=== PATIENT | female | born 1995 | race Caucasian/White ===

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

== ENCOUNTER → 2017-02-02 | Outpatient (CLI) | payer OTHER ==
[2017-02-02 12:57] LABS: BASO % 0.3 %; BASO ABS # 0.02 K/uL (0-0.2); COMPLETE YES; HEMATOCRIT 44.4 % (37-47); IG% 0.3 %; LYMPH % 41.4 %; LYMPH ABS # 2.89 K/uL (1.2-3.4); MEAN CORPUSCULAR HEMOGLOBIN 30.7 pg (25-34); MEAN CORPUSCULAR HGB CONC 34.5 g/dl (32-36); MEAN PLATELET VOLUME 9.4 fL (7.4-10.4); MONO % 10.3 %; NEUT % 44.7 %; PLATELET COUNT 304 K/uL (130-400); RED BLOOD COUNT 4.99 M/uL (4.2-5.4); WHITE BLOOD COUNT 6.98 K/uL (4.8-10.8)
== END | disposition home or self-care (01) ==
LOC: C.LABBFT 10:35
PROVIDERS: ATTEND Physician Assistant Medical
DX: E28.2 Polycystic ovarian syndrome (principal)

== ENCOUNTER → 2017-02-09 | Outpatient (CLI) | payer OTHER ==
[~2017-02-09] MED LIST changes: +PRED20TA PO; +TOPI25TA55 PO
--- NOTE | 2017-02-09 09:15 | DIAGNOSTIC IMAGING REPORT ---
EXAMINATION: PELVIC ULTRASOUND (transabdominal and endovaginal scanning) CLINICAL HISTORY: E28.2 PCOS (polycystic ovarian syndrome)[id number] COMPARISON STUDY: CT scan dated 01/13/2011 FINDINGS: The uterus measured 6.0 x 2.5 x 3.8 cm. The endometrial stripe measured 1 cm. The right ovary measured 40 x 25 x 38 mm.. There are multiple peripheral follicles. This finding has been described in polycystic ovarian syndrome. The left ovary measured 52 x 35 x 43 mm.. There is a 4.2 cm left ovarian cyst containing internal echoes. This likely represents a hemorrhagic cyst/endometrioma. There is no ultrasonographic evidence of ovarian torsion. It should be noted that ovarian torsion can be present with normal Doppler ultrasonographic findings. There is trace free fluid present. The urine within the bladder slightly echogenic. IMPRESSION: 4.2 cm left ovarian cyst containing internal echoes. This likely represents a hemorrhagic cyst/endometrioma. Electronically signed by: Rasta Martinez M.D. 02/09/2017 9:14 AM Dictated Date/Time: 02/09/2017 9:10 AM
--- NOTE | 2017-02-10 08:31 | DIAGNOSTIC IMAGING REPORT ---
EXAMINATION: PELVIC ULTRASOUND (transabdominal and endovaginal scanning) CLINICAL HISTORY: E28.2 PCOS (polycystic ovarian syndrome)[id number] COMPARISON STUDY: CT scan dated 01/13/2011 FINDINGS: The uterus measured 6.0 x 2.5 x 3.8 cm. The endometrial stripe measured 1 cm. The right ovary measured 40 x 25 x 38 mm.. There are multiple peripheral follicles. This finding has been described in polycystic ovarian syndrome. The left ovary measured 52 x 35 x 43 mm.. There is a 4.2 cm left ovarian cyst containing internal echoes. This likely represents a hemorrhagic cyst/endometrioma. There is no ultrasonographic evidence of ovarian torsion. It should be noted that ovarian torsion can be present with normal Doppler ultrasonographic findings. There is trace free fluid present. The urine within the bladder slightly echogenic. IMPRESSION: 4.2 cm left ovarian cyst containing internal echoes. This likely represents a hemorrhagic cyst/endometrioma. Electronically signed by: Rasta Martinez M.D. 02/09/2017 9:14 AM Dictated Date/Time: 02/09/2017 9:10 AM
== END | disposition home or self-care (01) ==
LOC: C.ULTR 08:29
PROVIDERS: ATTEND Physician Assistant Medical
DX: E28.2 Polycystic ovarian syndrome (principal)

== ENCOUNTER → 2017-05-17 | Outpatient (CLI) | payer OTHER ==
[2017-05-19 15:42] LABS: CHLAMYDIA TRACH RNA*** NOT DETECTED (NOT DETECTED); GC (NEIS GONORRHOEAE)RNA** NOT DETECTED (NOT DETECTED)
== END | disposition home or self-care (01) ==
LOC: C.LAB1850 13:37
PROVIDERS: ATTEND Obstetrics & Gynecology
DX: Z11.3 Encounter for screening for infections with a predominantly sexual mode of transmission (principal); N91.1 Secondary amenorrhea

== ENCOUNTER 2017-08-15 14:20 | Emergency (ER) | payer OTHER ==
[~2017-08-15] VITALS: Ht 157.5 cm; Wt 66.3 kg
[~2017-08-15 14:20] MED LIST changes: -PRED20TA PO; -TOPI25TA55 PO
[2017-08-15 14:36] VITALS: TEMP 37; Ht 157.5 cm; Wt 66.3 kg
[2017-08-15] MEDS ORDERED: TOPI25TA55 PO (15:35)
[2017-08-15] MEDS ORDERED: PRED20TA PO (15:35)
[2017-08-15] MEDS ORDERED: ONDANSETRON 4MG OD TAB PO ONE (16:15)
--- NOTE | 2017-08-15 16:42 | DIAGNOSTIC IMAGING REPORT ---
R WRIST W/NAVICULAR MIN 3 VIEWS CLINICAL HISTORY: 22 years-old Female presenting with right wrist pain. TECHNIQUE: Frontal, bilateral oblique, lateral, and scaphoid views of the right wrist were obtained. COMPARISON: None. FINDINGS: Radiocarpal, intercarpal, and carpometacarpal articulations congruent. No acute fracture or malalignment. Specifically, no radiographic abnormality of the scaphoid to suggest fracture. No radiographic evidence of soft tissue swelling. Mild negative ulnar variance suggested. IMPRESSION: No acute osseous injury of the right wrist. If there is continuing clinical concern for scaphoid fracture, repeat radiographs in one week versus noncontrast MR could be obtained. Electronically signed by: Ray Wolf M.D. 08/15/2017 4:41 PM Dictated Date/Time: 08/15/2017 4:39 PM
[2017-08-15 16:59] VITALS: BP 120/56; PULSE 68; O2SAT 99
--- NOTE | 2017-08-15 17:06 | EMERGENCY ROOM VISIT NOTE ---
History First contact with patient: 15:12 Chief Complaint: WRIST PAIN Stated Complaint: HURT WRIST History of Present Illness The patient is a 22 year old female who presents to the Emergency Room with complaints of right wrist pain after falling down steps last night. The patient reports that she was coming down steps in her home and accidentally stepped on a cat on the steps, causing her to lose her balance and fall arms first down 5 steps. The patient reports right wrist and forearm pain. The patient denies any pain extending into the hand. The patient also denies any head injury, neck pain, back pain, chest pain, abdominal pain or shortness of breath. Denies paresthesias or numbness of the right hand or fingers. The patient is [id number], and rates her discomfort a 7 out of 10. Tetanus immunization is up-to-date. Review of Systems 10 system review was performed and was negative except for pertinent positives and negatives as indicated in history of present illness Past Medical/Surgical History Medical Problems: (1) Chondromalacia Patellae, Right Knee (2) Ovarian Cyst Nec/Nos Surgical Problems: (1) History of arthroscopy of both knees (2) History of wisdom tooth extraction (3) Status post wrist surgery Social History Smoking Status: Current Every Day Smoker Alcohol Use: none Marital Status: single Housing Status: lives with family Occupation Status: unemployed, student Current/Historical Medications Scheduled Prednisone (Prednisone), 20 MG PO UD Topiramate (Topamax), 50 MG PO HS Physical Exam Vital Signs Date Time Temp Pulse Resp B/P (MAP) Pulse Ox O2 Delivery O2 Flow Rate FiO2 08/15/17 16:59 68 20 120/56 99 08/15/17 14:36 37.0 77 20 114/55 99 Room Air Physical Exam CONSTITUTIONAL: Healthy and well nourished. Alert and oriented X 3 with positive affect. Patient appears in mild discomfort after returning from x-ray , and is holding an emesis bag. HEENT: Normocephalic, atraumatic. Pupils equal, round and reactive. NECK: Full active range of motion without discomfort. RESPIRATORY: Clear to auscultation bilaterally with no wheezing, crackles, rhonchi or stridor. CARDIOVASCULAR: Regular rate and rhythm with no murmurs, rubs or gallops. GASTROINTESTINAL: Bowel sounds present in all quadrants. MUSCULOSKELETAL: Examination shows significant anatomic snuffbox tenderness. No obvious edema or ecchymosis of the wrist. She is tender across the entire dorsal wrist region as well. Pronation and supination also extends into the proximal forearm with mild tenderness to palpation over the medial elbow region. Capillary refill of the fingers is less than 2 seconds. INTEGUMENTARY: No rash or other significant dermatologic conditions noted. NEUROLOGIC: No focal neurologic deficits noted. Right hand and fingers are sensory intact. Medical Decision & Procedures ER Provider Diagnostic Interpretation: My interpretation of right wrist x-rays does not show any obvious fractures, carpal dislocation or other acute findings. Radiologist report is as follows: R WRIST W/NAVICULAR MIN 3 VIEWS CLINICAL HISTORY: 22 years-old Female presenting with right wrist pain. TECHNIQUE: Frontal, bilateral oblique, lateral, and scaphoid views of the right wrist were obtained. COMPARISON: None. FINDINGS: Radiocarpal, intercarpal, and carpometacarpal articulations congruent. No acute fracture or malalignment. Specifically, no radiographic abnormality of the scaphoid to suggest fracture. No radiographic evidence of soft tissue swelling. Mild negative ulnar variance suggested. IMPRESSION: No acute osseous injury of the right wrist. If there is continuing clinical concern for scaphoid fracture, repeat radiographs in one week versus noncontrast MR could be obtained. My interpretation of right forearm x-rays also does not show any acute fractures or dislocation. Radiologist report is as follows: Medications Administered Medications (Trade) Dose Ordered Sig/Ritchie Route Start Time Stop Time Status Last Admin Dose Admin Ondansetron HCl (Zofran Odt) 4 mg ONE ONCE PO 08/15/17 16:15 08/15/17 16:16 DC 08/15/17 16:21 4 MG ED Course Patient history and physical exam were performed. Nurse's notes were reviewed. Vital signs were reviewed and were normal. The patient had gone to x-ray prior to my exam per nursing x-ray protocol orders. Review of right wrist and forearm x-rays does not show any acute injuries/fractures/dislocations, however with anatomic snuffbox tenderness, I was concerned for navicular injury. When I was able to perform physical exam, she also had discomfort in the proximal forearm with pronation and supination, therefore a form x-ray was ordered and was also normal. An Ortho-Glass thumb spica splint was applied. Neurovascular check after splint placement was normal. The patient was encouraged to intermittently apply ice to the wrist. Ibuprofen and Tylenol in alternating fashion if needed for additional pain relief. The patient was instructed to follow-up with [facility] for further reevaluation and management. She has seen them before in the past for right wrist injuries/surgery. The patient was happy with plan of care, voice understanding of all discharge instructions, and rated her discomfort a 4 out of 10 at the conclusion of my exam. She refused any analgesics while in the emergency department. Medical Decision Blood Pressure Screening Patient's blood pressure: Normal blood pressure Impression Primary Impression: Right wrist injury Additional Impressions: Fall down steps Status post wrist surgery Departure Information Referrals No Doctor, Assigned (PCP) Patient Instructions My [facility] Problem Qualifiers Primary Impression: Right wrist injury Encounter type: initial encounter Qualified Codes: S69.91XA - Unspecified injury of right wrist, hand and finger(s), initial encounter Additional Impressions: Fall down steps Encounter type: initial encounter Qualified Codes: W10.8XXA - Fall (on) ( from) other stairs and steps, initial encounter
--- NOTE | 2017-08-15 17:35 | DIAGNOSTIC IMAGING REPORT ---
R FOREARM 2 VIEWS ROUTINE CLINICAL HISTORY: 22 years-old Female presenting with R forearm pain. TECHNIQUE: Frontal and lateral views of the right forearm are obtained. COMPARISON: None. FINDINGS: Elbow joint and radiocarpal articulations congruent. No acute fracture or malalignment. Apparent negative ulnar variance may be positional. IMPRESSION: No acute osseous injury of the right forearm. Electronically signed by: Ray Wolf M.D. 08/15/2017 5:34 PM Dictated Date/Time: 08/15/2017 5:33 PM
== END 2017-08-15 17:00 | disposition home or self-care (01) ==
LOC: C.EDB 14:22 → C.EDD 17:00
DX: S69.91XA Unspecified injury of right wrist, hand and finger(s), initial encounter (principal); W10.8XXA Fall (on) (from) other stairs and steps, initial encounter; N83.209 Unspecified ovarian cyst, unspecified side; F17.200 Nicotine dependence, unspecified, uncomplicated; Z79.899 Other long term (current) drug therapy

== ENCOUNTER → 2018-03-02 | Outpatient (CLI) | payer OTHER ==
[~2018-03-02] MED LIST changes: -NORT10CA2 PO; -OXYC-57 PO; +PRED20TA PO; +TOPI25TA55 PO; -TOPI50TA25 PO
[2018-03-02 17:13] LABS: HEMATOCRIT 45.8 % (37-47); HEMOGLOBIN 15.7 g/dL (12.0-16.0); MEAN CELL VOLUME 91.1 fL (80-100); MEAN CORPUSCULAR HEMOGLOBIN 31.2 pg (25-34); MEAN CORPUSCULAR HGB CONC 34.3 g/dl (32-36); MEAN PLATELET VOLUME 9.8 fL (7.4-10.4); PLATELET COUNT 324 K/uL (130-400); RED CELL DISTRIBUTION WIDTH CV 13.5 % (11.5-14.5); RED CELL DISTRIBUTION WIDTH SD 44.9 fL (36.4-46.3); WHITE BLOOD COUNT 11.28 K/uL (4.8-10.8)
[2018-03-02 18:47] LABS: URIC ACID 5.3 mg/dl (2.6-7.2)
[2018-03-06 02:19] LABS: ANA SCREEN TC 249X NEGATIVE (NEGATIVE)
== END | disposition home or self-care (01) ==
LOC: C.LABBFT 12:59
PROVIDERS: ATTEND Orthopaedic Surgery
DX: M25.531 Pain in right wrist (principal)

== ENCOUNTER 2018-03-17 17:10 | Emergency (ER) | payer OTHER ==
[~2018-03-17] VITALS: Ht 157.5 cm; Wt 70.4 kg
[2018-03-17 17:14] VITALS: Ht 157.5 cm; Wt 70.4 kg
[2018-03-17] MEDS ORDERED: SODIUM CHLORIDE 0.9% 1000ML 2,000 ML IV STA (17:30)
[2018-03-17] MEDS ORDERED: KETOROLAC TROMETHAMINE 30 MG/ML VIAL IV STA (17:30)
--- NOTE | 2018-03-17 17:47 | EMERGENCY ROOM VISIT NOTE ---
History Report prepared by Johnny: Drake Flores Under the Supervision of: Dr. Yariel Santiago M.D. First contact with patient: 17:23 Chief Complaint: ABDOMINAL PAIN Stated Complaint: LOWER STOMACH PAIN History of Present Illness The patient is a 22 year old female who presents to the Emergency Room with complaints of worsening lower abdominal pain that began last night. Patient is present with her mother. Patient states that the pain is located across her entire lower abdomen. Patient states that the symptoms came on all of a sudden. Patient adds that walking and sitting worsens the symptoms. Patient states that she was referred to the ED by her OB-SEISMOGRAPH SHOOTER due to the possibility of an ovarian cyst. Patient states that she has a history of ovarian cyst. Patient adds that she has nausea, chills, and hot flashes. She states that she does not have nausea in the ER currently. Patient states that she took 3 Advil yesterday and 1 today but it did not resolve the symptoms. Patient adds that her next menstrual period is in the next week. She states that she usually gets abdominal pain before her menstrual periods but "not this bad". Patient adds that it hurts to pee. She denies any burning with urination. Patient states that she had a miscarriage in April. She states that she was 6 weeks at the time. Patient states that she has a history of UTIs. She states that her symptoms do not feel like her previous UTIs. Patient states that she is sexually active but is not worried about an STD. Patient adds that she has a history of migraines. Patient denies vaginal discharge, vomiting, and diarrhea. Source of History: patient Onset: Last night Position: abdomen (Lower) Timing: worsening Modifying Factors (Worsening): other (Walking and sitting) Associated Symptoms: + chills, + nausea, + urinary symptoms (No burning but pain with urination), No vomiting, No diarrhea Note: Patient has hot flashes. Review of Systems See HPI for pertinent positives and negatives. A total of ten systems were reviewed and were otherwise negative. Past Medical & Surgical Medical Problems: (1) Chondromalacia Patellae, Right Knee (2) Ovarian Cyst Nec/Nos Surgical Problems: (1) History of arthroscopy of both knees (2) History of wisdom tooth extraction (3) Status post wrist surgery Family History Cancer Diabetes mellitus Gallbladder disease Heart disease Hypertension Kidney disease Seizures Social History Smoking Status: Current Every Day Smoker Alcohol Use: none Marital Status: single Housing Status: lives with family Occupation Status: unemployed, student Current/Historical Medications Scheduled Topiramate (Qudexy Xr), 100 MG PO DAILY Scheduled PRN Ondansetron Hcl (Zofran), 4-8 MG PO BID PRN for Nausea Propranolol (Inderal), 20 MG PO BID PRN for tremor Sumatriptan Succinate (Imitrex Statdose), 6 MG IM Q2H PRN for Migraine Miscellaneous Medications Rizatriptan Benzoate (Maxalt), 10 MG PO Allergies Coded Allergies: Amoxicillin (Unverified Allergy, Unknown, GI ISSUES, 03/17/18) Physical Exam Vital Signs Date Time Temp Pulse Resp B/P (MAP) Pulse Ox O2 Delivery O2 Flow Rate FiO2 03/17/18 20:48 36.9 80 18 110/70 99 Room Air 03/17/18 19:01 85 18 109/69 99 Room Air 03/17/18 17:14 37.0 96 18 113/68 98 Room Air Physical Exam GENERAL: Awake, alert, fatigued-appearing, in no distress HENT: Normocephalic, atraumatic. Oropharynx unremarkable other than dry mucous membranes. EYES: Normal conjunctiva. Sclera non-icteric. NECK: Supple. No nuchal rigidity. FROM. No JVD. RESPIRATORY: Clear to auscultation. CARDIAC: Regular rate, normal rhythm. Extremities warm and well perfused. Pulses equal. ABDOMEN: Soft, non-distended. Mild lower abdominal tenderness to palpation increased in the left lower quadrant.. No peritoneal signs. No rebound or guarding. No masses. RECTAL: Deferred. MUSCULOSKELETAL: Chest examination reveals no tenderness. The back is symmetrical on inspection without obvious abnormality. There is no CVA tenderness to palpation. No joint edema. LOWER EXTREMITIES: Calves are equal size bilaterally and non-tender. No edema. No discoloration. NEURO: Normal sensorium. No sensory or motor deficits noted. SKIN: No rash or jaundice noted. Medical Decision & Procedures ER Provider Diagnostic Interpretation: Radiology results as stated below per my review and radiologist interpretation: PELVIC COMPLETE NON OB HISTORY: 22 years-old Female Lower abd pain, h/o ovarian cysts acute lower abdominal pain with history of ovarian cysts. COMPARISON: Pelvic ultrasound 02/09/2017 TECHNIQUE: Multiple real-time sonographic images of the deep pelvic structures were obtained transabdominally and transvaginally assessing grayscale appearance, color and spectral flow FINDINGS: TRANSABDOMINAL: Anteflexed uterus measures 7.4 x 3.0 x 3.8 cm. Endometrium measures 1.0 cm in thickness. Ovaries are not well seen transabdominally. Arterial inflow to the right ovary is documented. Cystic structure of the right ovary measures up to 2.1 cm. Arterial inflow is also seen within the left ovary. Complex lesion of the left ovary is redemonstrated. TRANSVAGINAL: Anteflexed uterus measures 7.0 x 2.7 x 4.1 cm. Endometrium measures 0.7 cm and appears homogeneous. No myometrial mass lesions identified. Right ovary measures 4.3 x 2.7 x 4.3 cm and demonstrates several follicles. Complex partially cystic lesion of the right ovary measures 2.7 x 1.6 x 2.3 cm suggesting involuting follicle. Arterial inflow and venous outflow is seen within the right ovary. Left ovary measures 4.5 x 2.6 x 3.8 cm. There is a complex heterogeneous structure of the left ovary measuring 3.5 x 2.1 x 2.8 cm with peripheral vascularity. On prior study dated 02/09/2017, complex left ovarian structure measuring up to 4.2 cm. Arterial inflow and venous outflow is seen within the left ovary. No significant free pelvic fluid. IMPRESSION: 1. No evidence of ovarian torsion. 2. Heterogeneous lesion of the left ovary measuring up to 3.5 cm suggests hemorrhagic ovarian cyst. 3. Involuting right ovarian follicle. 4. Unremarkable sonographic appearance of the uterus and endometrium. The above report was generated using voice recognition software. It may contain grammatical, syntax or spelling errors. Electronically signed by: Marc Ugalde M.D. 03/17/2018 8:12 PM Laboratory Results 03/17/18 17:43 Red Blood Count 4.82, Mean Corpuscular Volume 89.8, Mean Corpuscular Hemoglobin 31.3, Mean Corpuscular Hemoglobin Concent 34.9, Mean Platelet Volume 9.4, Neutrophils (%) (Auto) 75.0, Lymphocytes (%) (Auto) 14.2, Monocytes (%) (Auto) 9.1, Eosinophils (%) (Auto) 1.4, Basophils (%) (Auto) 0.1, Neutrophils # (Auto) 12.10, Lymphocytes # (Auto) 2.29, Monocytes # (Auto) 1.47, Eosinophils # (Auto) 0.22, Basophils # (Auto) 0.02 03/17/18 17:43 Test 03/17/18 17:43 03/17/18 18:24 White Blood Count 16.13 K/uL (4.8-10.8) Red Blood Count 4.82 M/uL (4.2-5.4) Hemoglobin 15.1 g/dL (12.0-16.0) Hematocrit 43.3 % (37-47) Mean Corpuscular Volume 89.8 fL (80-100) Mean Corpuscular Hemoglobin 31.3 pg (25-34) Mean Corpuscular Hemoglobin Concent 34.9 g/dl (32-36) Platelet Count 232 K/uL (130-400) Mean Platelet Volume 9.4 fL (7.4-10.4) Neutrophils (%) (Auto) 75.0 % Lymphocytes (%) (Auto) 14.2 % Monocytes (%) (Auto) 9.1 % Eosinophils (%) (Auto) 1.4 % Basophils (%) (Auto) 0.1 % Neutrophils # (Auto) 12.10 K/uL (1.4-6.5) Lymphocytes # (Auto) 2.29 K/uL (1.2-3.4) Monocytes # (Auto) 1.47 K/uL (0.11-0.59) Eosinophils # (Auto) 0.22 K/uL (0-0.5) Basophils # (Auto) 0.02 K/uL (0-0.2) RDW Standard Deviation 44.1 fL (36.4-46.3) RDW Coefficient of Variation 13.5 % (11.5-14.5) Immature Granulocyte % (Auto) 0.2 % Immature Granulocyte # (Auto) 0.03 K/uL (0.00-0.02) Anion Gap 8.0 mmol/L (3-11) Est Creatinine Clear Calc Drug Dose 142.2 ml/min Estimated GFR () > 150.0 Estimated GFR (Non- 132.7 BUN/Creatinine Ratio 17.9 (10-20) Calcium Level 9.0 mg/dl (8.5-10.1) Total Bilirubin 1.0 mg/dl (0.2-1) Direct Bilirubin 0.2 mg/dl (0-0.2) Aspartate Amino Transf (AST/SGOT) 12 U/L (15-37) Alanine Aminotransferase (ALT/SGPT) 15 U/L (12-78) Alkaline Phosphatase 71 U/L (45-117) Total Protein 7.6 gm/dl (6.4-8.2) Albumin 3.9 gm/dl (3.4-5.0) Lipase 94 U/L (73-393) Human Chorionic Gonadotropin, Qual NEG (NEG) Urine Color YELLOW Urine Appearance CLEAR (CLEAR) Urine pH 6.0 (4.5-7.5) Urine Specific [place] 1.015 (1.000-1.030) Urine Protein NEG (NEG) Urine Glucose (UA) NEG (NEG) Urine Ketones 1+ (NEG) Urine Occult Blood TRACE (NEG) Urine Nitrite NEG (NEG) Urine Bilirubin NEG (NEG) Urine Urobilinogen NEG (NEG) Urine Leukocyte Esterase NEG (NEG) Urine WBC (Auto) 1-5 /hpf (0-5) Urine RBC (Auto) 0-4 /hpf (0-4) Urine Hyaline Casts (Auto) 1-5 /lpf (0-5) Urine Epithelial Cells (Auto) >30 /lpf (0-5) Urine Bacteria (Auto) NEG (NEG) Laboratory results reviewed by me Medications Administered Medications (Trade) Dose Ordered Sig/Ritchie Route Start Time Stop Time Status Last Admin Dose Admin Sodium Chloride 2,000 ml @ 999 mls/hr Q2H1M STAT IV 03/17/18 17:30 03/17/18 19:30 DC 03/17/18 18:20 999 MLS/HR Ketorolac Tromethamine (Toradol Inj) 15 mg NOW STAT IV 03/17/18 17:30 03/17/18 17:36 DC 03/17/18 18:21 15 MG Oxycodone HCl (Roxicodone Immediate Rel Tab) 5 mg NOW STAT PO 03/17/18 20:29 03/17/18 20:31 DC 03/17/18 20:48 5 MG Acetaminophen (Tylenol Tab) 1,000 mg NOW STAT PO 03/17/18 20:29 03/17/18 20:31 DC 03/17/18 20:47 1,000 MG ED Course 1725: The patient was evaluated in room B4B. A complete history and physical exam was performed. Medical Decision I reviewed the patient's past medical history, medications, and the nursing notes as described above. Differential diagnosis: Etiologies such as appendicitis, diverticulitis, PUD, biliary pathology, UTI, pancreatitis, obstruction, mesenteric ischemia, aortic pathology, infections, inflammatory bowel disease, renal colic, as well as others were entertained. The patient is a 22-year-old woman with a past medical history of ovarian cyst who presents to emergency department with lower abdominal pain that began last night per HPI. On arrival, the patient is uncomfortable but no acute distress, afebrile stable vital signs. On exam the patient has mild lower abdominal tenderness mostly in the left lower quadrant. WBC 16, nonspecific. Labs otherwise unremarkable. Pelvic ultrasound demonstrates ". Heterogeneous lesion of the left ovary measuring up to 3.5 cm suggests hemorrhagic ovarian cyst." The patient was reevaluated and feeling improved. Given the patient's ultrasound demonstrates findings that are consistent with the patient's symptoms and the patient denies any vaginal symptoms including discharge, odor, pain, we agreed to defer pelvic exam at this time. She will follow-up with her catering driver. Findings and plan for follow-up reviewed with patient. Patient agreeable and d/c'd per discharge instructions. Medication Reconcilliation Current Medication List: was personally reviewed by me Blood Pressure Screening Patient's blood pressure: Normal blood pressure Blood pressure disposition: Did not require urgent referral Impression Primary Impression: Hemorrhagic cyst of left ovary Scribe Attestation The scribe's documentation has been prepared under my direction and personally reviewed by me in its entirety. I confirm that the note above accurately reflects all work, treatment, procedures, and medical decision making performed by me. Departure Information Dispostion Home / Self-Care Referrals Devin Gilmore M.D. (PCP) Patient Instructions Cyst Ruptured Ovarian Tx, ED Cyst Ovarian, My [facility] Additional Instructions Please follow up with your primary care physician and catering driver in the next week for re-evaluation. You were found to have a rupture ovarian cyst. Otherwise, your exam, lab results, and ultrasound did not show signs of an emergent condition at this time. Acetaminophen or ibuprofen for pain and fevers as needed. Drink plenty of fluids to ensure hydration. Return to the emergency department for worsening symptoms as described in the accompanying instructions.
[2018-03-17] MEDS ORDERED: ONDA4TAB46 PO (17:54)
[2018-03-17] MEDS ORDERED: TOPI1CAP12 PO (17:54)
[2018-03-17] MEDS ORDERED: RIZA10TA18 PO (17:54)
[2018-03-17] MEDS ORDERED: SUMA6KIT IM (17:54)
[2018-03-17] MEDS ORDERED: PROP20TA67 PO (17:54)
[2018-03-17 17:56] LABS: BASO % 0.1 %; BASO ABS # 0.02 K/uL (0-0.2); EOS % 1.4 %; EOS ABS # 0.22 K/uL (0-0.5); HEMATOCRIT 43.3 % (37-47); HEMOGLOBIN 15.1 g/dL (12.0-16.0); IG# 0.03 K/uL (0.00-0.02); LYMPH % 14.2 %; LYMPH ABS # 2.29 K/uL (1.2-3.4); MEAN CELL VOLUME 89.8 fL (80-100); MEAN CORPUSCULAR HEMOGLOBIN 31.3 pg (25-34); MEAN CORPUSCULAR HGB CONC 34.9 g/dl (32-36); MEAN PLATELET VOLUME 9.4 fL (7.4-10.4); MONO % 9.1 %; MONO ABS # 1.47 K/uL (0.11-0.59); PLATELET COUNT 232 K/uL (130-400); RED CELL DISTRIBUTION WIDTH CV 13.5 % (11.5-14.5); RED CELL DISTRIBUTION WIDTH SD 44.1 fL (36.4-46.3); WHITE BLOOD COUNT 16.13 K/uL (4.8-10.8)
[2018-03-17 18:12] LABS: ALBUMIN 3.9 gm/dl (3.4-5.0); ALT/SGPT 15 U/L (12-78); AST/SGOT 12 U/L (15-37); BLOOD UREA NITROGEN 10 mg/dl (7-18); CARBON DIOXIDE 24 mmol/L (21-32); CREATININE 0.58 mg/dl (0.60-1.20); GLUCOSE 75 mg/dl (70-99); POTASSIUM 3.6 mmol/L (3.5-5.1); SODIUM 137 mmol/L (136-145)
[2018-03-17 18:15] LABS: ALKALINE PHOSPHATASE 71 U/L (45-117); LIPASE 94 U/L (73-393); TOTAL PROTEIN 7.6 gm/dl (6.4-8.2)
--- NOTE | 2018-03-17 20:14 | DIAGNOSTIC IMAGING REPORT ---
PELVIC COMPLETE NON OB HISTORY: 22 years-old Female Lower abd pain, h/o ovarian cysts acute lower abdominal pain with history of ovarian cysts. COMPARISON: Pelvic ultrasound 02/09/2017 TECHNIQUE: Multiple real-time sonographic images of the deep pelvic structures were obtained transabdominally and transvaginally assessing grayscale appearance, color and spectral flow FINDINGS: TRANSABDOMINAL: Anteflexed uterus measures 7.4 x 3.0 x 3.8 cm. Endometrium measures 1.0 cm in thickness. Ovaries are not well seen transabdominally. Arterial inflow to the right ovary is documented. Cystic structure of the right ovary measures up to 2.1 cm. Arterial inflow is also seen within the left ovary. Complex lesion of the left ovary is redemonstrated. TRANSVAGINAL: Anteflexed uterus measures 7.0 x 2.7 x 4.1 cm. Endometrium measures 0.7 cm and appears homogeneous. No myometrial mass lesions identified. Right ovary measures 4.3 x 2.7 x 4.3 cm and demonstrates several follicles. Complex partially cystic lesion of the right ovary measures 2.7 x 1.6 x 2.3 cm suggesting involuting follicle. Arterial inflow and venous outflow is seen within the right ovary. Left ovary measures 4.5 x 2.6 x 3.8 cm. There is a complex heterogeneous structure of the left ovary measuring 3.5 x 2.1 x 2.8 cm with peripheral vascularity. On prior study dated 02/09/2017, complex left ovarian structure measuring up to 4.2 cm. Arterial inflow and venous outflow is seen within the left ovary. No significant free pelvic fluid. IMPRESSION: 1. No evidence of ovarian torsion. 2. Heterogeneous lesion of the left ovary measuring up to 3.5 cm suggests hemorrhagic ovarian cyst. 3. Involuting right ovarian follicle. 4. Unremarkable sonographic appearance of the uterus and endometrium. The above report was generated using voice recognition software. It may contain grammatical, syntax or spelling errors. Electronically signed by: Marc Ugalde M.D. 03/17/2018 8:12 PM Dictated Date/Time: 03/17/2018 8:08 PM
[2018-03-17] MEDS ORDERED: OXYCODONE HCL IR 5 MG TAB (IMMEDIATE RELEASE) PO STA (20:29)
[2018-03-17] MEDS ORDERED: ACETAMINOPHEN 500 MG TAB PO STA (20:29)
[2018-03-17 20:48] VITALS: BP 110/70; PULSE 80; TEMP 36.9; O2SAT 99
== END 2018-03-17 20:50 | disposition home or self-care (01) ==
LOC: C.EDB 17:10
DX: N83.202 Unspecified ovarian cyst, left side (principal); F17.200 Nicotine dependence, unspecified, uncomplicated; Z87.440 Personal history of urinary (tract) infections; Z88.0 Allergy status to penicillin

== ENCOUNTER 2018-06-05 15:35 | Emergency (ER) | payer OTHER ==
[~2018-06-05 15:35] MED LIST changes: +ONDA4TAB46 PO; -PRED20TA PO; +PROP20TA67 PO; +RIZA10TA18 PO; +SUMA6KIT IM; +TOPI1CAP12 PO; -TOPI25TA55 PO
[2018-06-05 15:39] VITALS: TEMP 36.7; Ht 157.5 cm
--- NOTE | 2018-06-05 16:15 | DIAGNOSTIC IMAGING REPORT ---
L KNEE 1 OR 2 VIEWS ROUTINE CLINICAL HISTORY: LT KNEE PAIN PATELLAR DISLOCATION pain COMPARISON: None. DISCUSSION: Slight lateral patellar subluxation. Small joint effusion. Tiny avulsion from the superior patella. The osseous structures are unremarkable. There is no evidence for soft tissue swelling. IMPRESSION: 1. Tiny avulsion superior patella. 2. Slight lateral patellar subluxation 3. Otherwise negative study. The above report was generated using voice recognition software. It may contain grammatical, syntax or spelling errors. Electronically signed by: Sumit Maria M.D. 06/05/2018 4:13 PM Dictated Date/Time: 06/05/2018 4:13 PM
[2018-06-05] MEDS ORDERED: ONDANSETRON 4MG OD TAB PO STA (16:57)
--- NOTE | 2018-06-05 16:57 | EMERGENCY ROOM VISIT NOTE ---
History First contact with patient: 15:41 (Deloris Sanchez PA-C) First contact with patient: 15:41 (Tima Artis M.D.) Chief Complaint: KNEEPAIN Stated Complaint: LEFT KNEE INJURY, FALL History of Present Illness The patient is a 23 year old female who presents to the Emergency Room with complaints of left knee pain. [facility] walking out of the bathroom when her left knee "popped out." She states that the kneecap was initially on the side of her knee but then popped back in. She has had issues with this in the past and has had surgery in 2015. She reports swelling in the knee and 10/10 pain. She has not been able to walk on the knee. She denies any numbness or weakness. She took Aleve prior to arrival for pain. (Deloris Sanchez PA-C) Review of Systems A complete 6 point review of systems was reviewed with the patient with pertinent positives and negatives as per history of present illness. All else were negative. (Deloris Sanchez PA-C) Past Medical/Surgical History Medical Problems: (1) Chondromalacia Patellae, Right Knee (2) Ovarian Cyst Nec/Nos Surgical Problems: (1) History of arthroscopy of both knees (2) History of wisdom tooth extraction (3) Status post wrist surgery (Tima Artis M.D.) Family History Cancer Diabetes mellitus Gallbladder disease Heart disease Hypertension Kidney disease Seizures (Deloris Sanchez PA-C) Cancer Diabetes mellitus Gallbladder disease Heart disease Hypertension Kidney disease Seizures (Tima Artis M.D.) Social History Smoking Status: Never Smoker Alcohol Use: none Marital Status: single Housing Status: lives with family Occupation Status: unemployed, student (Deloris Sanchez PA-C) Current/Historical Medications Scheduled Topiramate (Qudexy Xr), 100 MG PO DAILY Scheduled PRN Ondansetron Hcl (Zofran), 4-8 MG PO BID PRN for Nausea Oxycodone/Acetaminophen 5MG/325MG (Percocet 5MG/325MG), 1 TAB PO Q4H PRN for Pain Propranolol (Inderal), 20 MG PO BID PRN for tremor Rizatriptan Benzoate (Maxalt), 10 MG PO DIRECTED PRN for Migraine Sumatriptan Succinate (Imitrex Statdose), 6 MG IM Q2H PRN for Migraine Physical Exam Vital Signs Date Time Temp Pulse Resp B/P (MAP) Pulse Ox O2 Delivery O2 Flow Rate FiO2 06/05/18 17:42 72 18 130/81 99 06/05/18 15:39 36.7 66 17 122/75 100 Room Air (Tima Artis M.D.) Physical Exam VITALS: Vitals are noted on the nurse's note and reviewed by myself. Vital signs stable. GENERAL: This is a 23-year-old female, in no acute distress, nondiaphoretic, well-developed well-nourished. MUSCULOSKELETAL: There is a small left knee joint effusion. Patient is significantly tender over the anterior aspect of the knee range of motion testing is not able to be performed due to patient discomfort. NEURO: Patient was alert and oriented to person place and time. Distal sensation intact. (Deloris Sanchez ., PA-C) Medical Decision & Procedures ER Provider Diagnostic Interpretation: L KNEE 1 OR 2 VIEWS ROUTINE CLINICAL HISTORY: LT KNEE PAIN PATELLAR DISLOCATION pain COMPARISON: None. DISCUSSION: Slight lateral patellar subluxation. Small joint effusion. Tiny avulsion from the superior patella. The osseous structures are unremarkable. There is no evidence for soft tissue swelling. IMPRESSION: 1. Tiny avulsion superior patella. 2. Slight lateral patellar subluxation 3. Otherwise negative study. (Deloris Sanchez ., PA-C) Medications Administered Medications (Trade) Dose Ordered Sig/Ritchie Route Start Time Stop Time Status Last Admin Dose Admin Oxycodone/ Acetaminophen (Percocet 5/ 325MG Home Pack) 1 homepack UD ONCE PO 06/05/18 17:00 06/05/18 17:01 DC 06/05/18 17:00 1 HOMEPACK Ondansetron HCl (Zofran Odt) 4 mg NOW STAT PO 06/05/18 16:57 06/05/18 16:59 DC 06/05/18 16:57 4 MG (Tima Artis M.D.) Medical Decision The patient was evaluated as above. X-ray of the left knee was obtained and reviewed by radiology as above. Patient does have lateral subluxation of the patella. She has a history of patellar dislocations. She was placed in a knee immobilizer and crutches. She was instructed to follow-up with her surgeon. She was given a home pack and prescription for Percocet for pain. She verbalized understanding of my assessment and treatment plan and was discharged home in good condition. (Deloris Sanchez PA-C) [place] Drug Monitoring Program Search Results: patient reviewed within database, no issues identified (Deloris Sanchez PA-C) Medication Reconcilliation Current Medication List: was personally reviewed by me (Deloris Sanchez PA-C) Blood Pressure Screening Patient's blood pressure: Normal blood pressure (Deloris Sanchez PA-C) Impression Primary Impression: Left knee pain Departure Information Dispostion Home / Self-Care Condition GOOD Prescriptions Oxycodone/Acetaminophen 5MG/325MG (PERCOCET 5MG/325MG) Tab 1 TAB PO Q4H Y for Pain, #15 TAB For Initial Treatment Prov: Deloris Sanchez PA-C 06/05/18 Referrals Sravanthi Glasgow D.O. (PCP) Conrado Castillo D.O. Patient Instructions My [facility] Additional Instructions You have been treated in the Emergency Department for Knee Pain. You have been prescribed Percocet to be used for pain control. This is a narcotic medication. You cannot drive or consume alcohol while on this medicine. This medicine should only be used for pain that cannot be controlled with [id number] pain medicines. For pain control, you can use the following [id number] medicines (if >12 yo): - Regular strength (325mg/tab) Tylenol (acetaminophen) 2 tabs every 4-6 hours as needed. Do not exceed 12 tablets in a 24 hour period. Avoid taking more than 4 grams (4000 mg) of Tylenol per day. This includes any other sources of acetaminophen you may take on a regular basis. - Regular strength (200 mg/tab) Advil (ibuprofen) 1-2 tabs every 4-6 hours as needed. Do not exceed a dose of 3200 mg per day. If this is a recent injury (<24 hrs), ice can be applied to the area of pain for the first 3 days to help decrease pain and inflammation. Ice massages can be performed by freezing water in a paper cup, peeling back the cup to expose the ice and then massaging over the affected area. Contact Dr. Castillo's office to schedule follow up appointment. Keep the knee brace in place until cleared by Orthopedics. Use the crutches you have been provided to keep ALL weight off of the knee until weight bearing is tolerable. Return to the Emergency Department if your current symptoms worsen despite treatment course outlined above. Problem Qualifiers Primary Impression: Left knee pain Chronicity: acute Qualified Codes: M25.562 - Pain in left knee
[2018-06-05] MEDS ORDERED: OXYC-57 PO (17:00)
[2018-06-05] MEDS ORDERED: PERCOCET HOME PACK PO ONE (17:00)
[2018-06-05 17:42] VITALS: BP 130/81; PULSE 72; O2SAT 99
== END 2018-06-05 17:43 | disposition home or self-care (01) ==
LOC: C.EDB 15:36 → C.EDD 17:43
DX: M25.562 Pain in left knee (principal); M25.462 Effusion, left knee; Z80.9 Family history of malignant neoplasm, unspecified; Z83.3 Family history of diabetes mellitus; Z83.79 Family history of other diseases of the digestive system; Z82.49 Family history of ischemic heart disease and other diseases of the circulatory system; Z84.1 Family history of disorders of kidney and ureter; Z82.0 Family history of epilepsy and other diseases of the nervous system; Z79.899 Other long term (current) drug therapy